=== PATIENT | female | born 1945 | race Caucasian/White ===

== ENCOUNTER 2024-10-20 14:54 | Outpatient (OUT) | payer OTHER, SELFPAY ==
--- OUTSIDE RECORDS SUMMARY | 2024-10-20 14:59 | XMS_ITS | Clinical Summary ---
Author Organization [facility] Address [address] [place] [id number] Care Team Providers Care Precision Inspector Name Role Phone Unavailable Primary Care Provider Unavailabl e Allergies Active Allergy Reactions Criticality Noted Date Comments environmental [Other] Unknown 07/08/2011 Perfumes Other: See Comments 04/04/2012 Medications CENTRUM SILVER TAB Take one(1) tablet daily. 0 6 Active CALCIUM 600 WITH VITAMIN D3 600 MG-200 UNIT TAB Take one(1) tablet two(2) times daily. 0 6 Active Coenzyme Q10 10 mg Tab Take by mouth. Activ e fluticasone 110 mcg/actuation inhaler Inhale 1 Puff as instructed twice daily. 1 Inhaler 12 2 Active GLUC ROWE/CHONDRO ROWE A/VIT C/MN (GLUCOSAMINE 1500 COMPLEX ORAL) Take by mouth. Activ e [place]-3 Fatty Acids-Vitamin E (FISH OIL) 1,000 mg cap Take 1 capsule by mouth. Active Active Problems Problem Noted Date Diagnosed Date Abnormal mammogram, unspecified 05/15/2013 Cough 06/23/2005 Allergic rhinitis due to other allergen Immunizations Immunization Administration Dates Next Due diphtheria tetanus pertussis (DTaP) vaccine, pediatric (INFANRIX) 06/23/2005 Family History Medical History Relation Comments Cancer Father stomach Allergies Mother Cancer Mother non hodgkins lym phoma Diabetes Mother Hypertension Mother Cancer Sister 5 throat CA Relation Status Comments Brother 1 Alive Brother 2 Alive Father (Age 70) Mother Alive Sister 1 Alive smoker with thro at CA Sister 2 Alive Sister 3 Alive Sister 4 Alive Sister 5 Social History Tobacco Use Types Packs/Day Years Used Date Smoking Tobacco: Never Comments:smoked for brief pe riod in early Alcohol Use Standard Drinks/Week Comments Yes 0 (1 standard drink = 0.6 oz pur e alcohol) Comments No Sex and Gender Information Value Date Recorded Sex Assigned at Not on file Legal Sex Female 7:35 AM EST Gender Identity Not on file Sexual Orientation Not on file Last Filed Vital Signs Vital Sign Reading Time Taken Comments Blood Pressure 114/74 07/18/2012 8:45 AM EDT Pulse 68 07/18/2012 8:45 AM EDT Temperature 36.3 C (97.3 F) 07/18/2012 8:45 AM EDT Respiratory Rate 16 07/18/2012 8:45 AM EDT Oxygen Saturation - - Inhaled Oxygen Concentration - - Weight 73 kg (161 lb) 07/18/2012 8:45 AM EDT Height 151.1 cm (4' 11.5 ) 07/18/2012 8:45 AM ED T Body Mass Index 31.97 07/18/2012 8:45 AM EDT Plan of Treatment Health Maintenance Due Date Last Done Comments Anxiety Screening 1963 Depression Screening 1963 Hepatitis C Screening 1963 Pneumococcal Vaccine: 50+ (1 of 1 - PCV) 1996 Shingrix Vaccine (1 of 2) 1996 Bone Density Screening 2011 DTaP,Tdap,Td Vaccine (2 - Tdap) 06/24/2015 6 Diabetes Screening 07/19/2015 07/18/2012, 0 07/09/2011, 07/31/2005, Additional history exists RSV Vaccine (1 - 1-dose 75+ series) 2021 Covid-19 Vaccine (1 - 2023-2 5 season) 2023 Advance Directive Discussion 04/12/2024 Influenza Vaccine (#1) 2024 Colorectal Cancer Screening Discontinued Fecal Occult Blood Discontinued 04/13/2012 Mammogram Screening Discontinued 03/29/2013 (Patient/Parent/Guardian Counseled and Declines), 05/18/2011, 06/23/2005 CT Colonography Discontinued Cologuard (FIT-DNA) Discontinued Colonoscopy Discontinued Sigmoidoscopy Discontinued Procedures Procedure Name Priority Date/Time Associated Diagnosis Comments GLUCOSE FASTING BLD Routine 07/18/2012 8 :36 AM EDT from Last 3 Months or Most Recently Relevant to Health Maintenance Results * GLUCOSE FASTING BLD (07/18/2012 8:36 AM EDT) Glucose, Fasting 80 65 - 100 mg/dL [facility] 07/18/2012 8:36 AM EDT 07/18/2012 8:40 AM EDT us Alonzo Dye III, MD LABORATORY Final Resu lt [facility] [address] [place] [address] from Last 3 Months or Most Recently Relevant to Health Maintenance Insurance [employer] MED[employer]ARE
--- OUTSIDE RECORDS SUMMARY | 2024-10-20 14:59 | XMS_ITS | Clinical Summary ---
Author Organization [facility] Address [address] [place] [address] Phone Care Team Providers Care Merchandise Deliverer Name Role Phone Unavailable Primary Care Provider Unavailabl e Allergies Active Allergy Reactions Criticality Noted Date Comments Perfume Unknown 04/04/2012 Medications ubidecarenone (coenzyme Q10) 100 mg tablet Take by mouth. Active omega 9-pbn-usc-fish oil (Fish OiL) 1,000 (120-180) mg capsule Take 1 capsule (1,000 mg) by mouth. Active PreviDent 5000 Sensitive 1.1-5 % paste Apply a thin layer on the affected tooth twice a day 04/10/2024 Active albuterol 90 mcg/actuation inhaler Active glucosamine-D3- hyaluronic acid 1,000 mg- 25 mcg-1.65 mg tablet Take by mouth. 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); Diplopia 08/22/2024 Travel from Last 3 Months Social History Tobacco Use Types Packs/Day Years Used Date Smoking Tobacco: Never Assessed Comments Unknown Sex and Gender Information Value Date Recorded Sex Assigned at Not on file Legal Sex Female 3:34 PM EDT Gender Identity Not on file Sexual Orientation Not on file Plan of Treatment Upcoming Encounters Date Type Department Care Team (Late st Contact Info) Description 04/24/2025 3:30 PM EST Office Visit [facility] [address] [place] [phone] [place] [address] Department [place] [address] Health Maintenance Due Date Last Done Comments Bone Density Scan 1945 Lipid Panel 1945 Medicare Annual Wellness Vis it (AWV) 1945 Hepatitis C Screening 1963 Pneumococcal Vaccine (1 of 1 - PCV) 1996 Zoster Vaccines (1 of 2) 1996 DTaP/Tdap/Td Vaccines (2 - Tdap) 06/24/2015 06/24/19 06 RSV High Risk: (Elderly (60+ ) or Population) (1 - 1-dose 75+ series) 2021 COVID-19 Vaccine (1 - 2023-2 5 season) 2023 Influenza Vaccine (#1) 2024 HIB Vaccines Aged Out No longer eligi ble based on patient's age to complete this topic HPV Vaccines (No Doses Required) Completed Hepatitis A Vaccines Aged Out No long er eligible based on patient's age to complete this topic Hepatitis B Vaccines Aged Out No long er eligible based on patient's age to complete this topic IPV Vaccines Aged Out No longer eligi ble based on patient's age to complete this topic Meningococcal Vaccine Aged Out No marisela gallo eligible based on patient's age to complete this topic Rotavirus Vaccines Aged Out No longer eligible based on patient's age to complete this topic Insurance Aigou Aigou
== END 2024-10-20 14:55 | disposition home or self-care (01) ==
LOC: US 14:57
PROVIDERS: PCP Family Medicine; Visit Provider Family Medicine
DX: R25.2 Cramp and spasm (principal); I83.90 Asymptomatic varicose veins of unspecified lower extremity; I83.11 Varicose veins of right lower extremity with inflammation; I83.12 Varicose veins of left lower extremity with inflammation
CPT/HCPCS: 93970

== ENCOUNTER 2024-11-22 15:46 | Outpatient (REF) | payer OTHER, SELFPAY ==
[2024-11-22 16:02] LABS: Glucose Urine UA NEGATIVE (NEGATIVE)
== END 2024-11-22 15:47 | disposition home or self-care (01) ==
LOC: LAB 15:46
PROVIDERS: PCP Family Medicine; Visit Provider Family Medicine
DX: R30.0 Dysuria (principal)
CPT/HCPCS: 81003